=== PATIENT | female | born 1985 | race Caucasian/White ===

== ENCOUNTER 2017-07-11 00:26 | Emergency (ER) | payer SELFPAY ==
[2017-07-11 02:03] LABS: URINE PH (Dip) POC 5.5 (5.0-8.5)
[2017-07-11 02:03] LABS: URINE BLOOD (Dip) POC 3+ (NEGATIVE); URINE KETONES (Dip) POC Negative (NEGATIVE); URINE LEUKOCYTE EST (Dip) POC Negative (NEGATIVE); URINE NITRITE (Dip) POC Negative (NEGATIVE); URINE TOTAL PROTEIN POC Negative (NEGATIVE)
[2017-07-11] MEDS: morphine 4 MG/ML VIAL IV (02:04)
[2017-07-11] MEDS: ONDANSETRON 4 MG INJ IV (02:04)
[2017-07-11] MEDS ORDERED: DIPHENHYDRAMINE 50 MG INJ (02:10)
[2017-07-11] MEDS: DIPHENHYDRAMINE 50 MG INJ IV (02:21)
[2017-07-11 02:23] LABS: ADD MAN DIFF? NO
[2017-07-11 02:26] LABS: WHITE BLOOD COUNT 7.5 10^3/ul (4.8-10.8)
[2017-07-11 02:26] LABS: BASOPHILS % 0.1 % (0.0-2.0); EOSINOPHILS # 0.1 10^3/ul (0.0-0.5); EOSINOPHILS % 0.7 % (0.0-7.0); HEMATOCRIT 35.6 % (37.0-47.0); HEMOGLOBIN 12.6 g/dl (12.0-16.0); LYMPHOCYTES # 1.9 10^3/ul (0.8-2.9); MEAN CORPUSCULAR HEMOGLOBIN 28.9 pg (29.0-33.0); MEAN CORPUSCULAR HGB CONC 35.4 g/dl (32.0-37.0); MEAN CORPUSCULAR VOLUME 81.7 fl (82.0-101.0); MEAN PLATELET VOLUME 11.3 fl (7.4-10.4); MONOCYTE # 0.5 10^3/ul (0.3-0.9); NEUTROPHILS % 66.8 % (39.0-77.0); PLATELET COUNT 229 10^3/UL (140-415); RED BLOOD COUNT 4.36 10^6/ul (4.20-5.40); RED CELL DISTRIBUTION WIDTH 12.9 % (11.5-14.5)
[2017-07-11 02:29] LABS: AADO2 Arterial 6.8 mmHg (7.0-24.0); Allen Test ACCEPTAB; Arterial Base Excess 0.1 mmol/L (-3.0-3); Arterial Blood Gas Oxygen Sat 97.6 mmHG (95.0-98.0); Arterial COHb 0.2 % (0.0-3.0); Arterial Fraction of Oxyhgb 97.1 % (93.0-99.0); Arterial HCO3 23.6 mmol/L (22.0-26.0); Arterial MetHb 0.3 % (0.0-1.5); Arterial Total Hemglobin 12.9 g/dl (12.0-18.0); Arterial pCO2 34.8 mmhg (35-45); MODE ROOM AIR; Site Right Radial
[2017-07-11 02:40] LABS: INR 0.87; PROTIME 11.9 Sec (11.9-14.9); PT RATIO 0.9
[2017-07-11 02:41] LABS: PARTIAL THROMBOPLASTIN TIME 24.3 Sec (25.0-35.0)
[2017-07-11] MEDS: SOD CHLORIDE 0.9% IV (02:41)
[2017-07-11 02:45] LABS: ALANINE AMINOTRANSFERASE 67 IU/L (13-69); ALBUMIN 4.3 g/dl (3.3-4.9); ALBUMIN/GLOBULIN RATIO 1.34; ALKALINE PHOSPHATASE 207 IU/L (42-121); ANION GAP 14 (8-16); ASPARTATE AMINO TRANSFERASE 50 IU/L (15-46); BILIRUBIN,INDIRECT 0.1 mg/dl (0-1.1); BILIRUBIN,TOTAL 0.1 mg/dl (0.2-1.3); BLOOD UREA NITROGEN 11 mg/dl (7-20); CALCIUM 9.3 mg/dl (8.4-10.2); CARBON DIOXIDE 26 mmol/L (21-31); CHLORIDE 96 mmol/L (97-110); CREATININE 0.62 mg/dl (0.44-1.00); LIPASE 207 U/L (23-300); POTASSIUM 4.2 mmol/L (3.5-5.1); SODIUM 132 mmol/L (135-144); TOTAL PROTEIN 7.5 g/dl (6.1-8.1)
[2017-07-11 02:47] LABS: URINE BLOOD (Dip) POC 3+ (NEGATIVE); URINE KETONES (Dip) POC Negative (NEGATIVE); URINE LEUKOCYTE EST (Dip) POC Negative (NEGATIVE); URINE NITRITE (Dip) POC Negative (NEGATIVE); URINE TOTAL PROTEIN POC Negative (NEGATIVE)
[2017-07-11 02:47] LABS: URINE PH (Dip) POC 5.5 (5.0-8.5)
[2017-07-11 02:57] LABS: GLUCOSE 642 mg/dl (70-220)
[2017-07-11] MEDS: HYDROmorphONE 1 MG/ML SYG IV (03:01)
[2017-07-11] MEDS: INSULIN LISPRO 100 UNIT/ML VIAL SC (05:27)
== END 2017-07-11 05:30 | disposition home or self-care (01) ==
LOC: E/R 00:26
DX: R10.11 Right upper quadrant pain (principal); R31.9 Hematuria, unspecified; E11.65 Type 2 diabetes mellitus with hyperglycemia; K76.0 Fatty (change of) liver, not elsewhere classified; R94.5 Abnormal results of liver function studies; I10 Essential (primary) hypertension
CPT/HCPCS: 36415; 36600; 71045; 76705; 80053; 81003; 82803; 82962; 83690; 85025; 85610; 85730; 93005; 96372; 96374; 96375; 99285-25